=== PATIENT | female | born 1985 | race Asian ===

== ENCOUNTER 2020-12-10 12:21 | Outpatient (CLI) | payer OTHER ==
[2020-12-12 07:06] LABS: FOLLICLE STIMULATION HORMONE 7.4 mIU/mL (.); PROGESTERONE 0.2 ng/mL (.)
== END 2020-12-10 19:36 | disposition home or self-care (01) ==
LOC: SLB 12:21
PROVIDERS: ATTEND Specialist
DX: N92.1 Excessive and frequent menstruation with irregular cycle (principal)
CPT/HCPCS: 36415; 82670; 83001; 84144; 84443-TC

== ENCOUNTER 2020-12-16 15:05 | Outpatient (CLI) | payer OTHER | END 2020-12-16 20:55 | disposition home or self-care (01) | LOC: SUS 15:05 | PROVIDERS: ATTEND Specialist | DX: N88.8 Other specified noninflammatory disorders of cervix uteri (principal); N83.201 Unspecified ovarian cyst, right side; N92.1 Excessive and frequent menstruation with irregular cycle | CPT/HCPCS: 76830-TC; 76857 ==